=== PATIENT | female | born 1945 | race Caucasian/White ===

== ENCOUNTER 2024-06-18 19:19 | Emergency (ER) | payer MEDICARE, BC ==
[2024-06-18] MEDS ORDERED: Aspirin Chewable 81 MG TAB ONE (19:34)
[2024-06-18 19:37] LABS: #Basophils 0.1 thou/uL (0.0-0.2); #Eosinphils 0.2 thou/uL (0.0-0.7); #Lymphocytes 1.9 thou/uL (1.20-3.40); #Monocytes 0.6 thou/uL (0.11-0.59); #Neutrophils 2.8 thou/uL (1.40-6.50); %Basophils 1.3 % (0.0-1.0); %Eosinophils 4.4 % (0.0-10.0); %Lymphocytes 33.6 % (21.0-51.0); %Monocytes 10.7 % (0.0-10.0); Hematocrit 37.6 % (36.0-47.0); Hemoglobin 11.8 g/dL (12.0-16.0); Mean Corpuscular HGB CONC 31.4 g/dL (32.0-36.0); Mean Corpuscular Hemoglobin 29.2 pg (27.0-31.0); Mean Corpuscular Volume 92.8 fl (78.0-98.0); Mean Platelet Volume 6.5 fL (7.4-10.4); Platelet Count 212 10x3/uL (130-400); RBC Distribution Width 12.8 % (11.5-14.5); Red Blood Cell (RBC) Count 4.05 mill/uL (4.20-5.40); White Blood Cell (WBC) Count 5.5 10x3/uL (4.8-10.8)
[2024-06-18 19:58] LABS: ALT (SGPT) 15 U/L (8-55); AST (SGOT) 18 U/L (5-34); Alkaline Phosphatase 84 U/L (40-110); Anion Gap 15 mmol/L (10-20); BUN (Urea Nitrogen) 26 mg/dL (9.8-20.1); Bilirubin, Total 0.3 mg/dL (0.2-1.2); Calc. Creatinine Clearance 0 mL/min (70-130); Calcium 9.1 mg/dL (7.8-10.44); Carbon Dioxide 23 mmol/L (23-31); Chloride 106 mmol/L (98-107); Estimated GFR 54; Globulin 2.4 g/dL (2.4-3.5); Glucose 116 mg/dL (83-110); Potassium 4.1 mmol/L (3.5-5.1); Protein, Total 6.4 g/dL (5.8-8.1); Sodium 140 mmol/L (136-145); Troponin I Less than 0.010 ng/mL (< 0.028)
[2024-06-18] MEDS ORDERED: Azithromycin 250 MG TAB ONE (20:22)
[2024-06-18] MEDS ORDERED: Ipratropium/Albuterol 3 ML NEB ONE (20:22)
[2024-06-18] MEDS ORDERED: cefTRIAXone (ROCEPHIN) 1 GM VIAL ONE (20:23)
[2024-06-18 20:28] LABS: Bilirubin Negative (Negative); Blood, Urine Negative (Negative); Clarity Clear (Clear); Glucose, Urine (Dipstick) Negative (Negative); Ketone, Urine Negative (Negative); Leukocyte Trace (Negative); Nitrite Negative (Negative); Protein, Urine (Dipstick) Negative (Neg-Trace); Specific Gravity, Urine 1.015 (1.005-1.030); Urobilinogen 0.2 mg/dL (Less than 2); pH, Urine 5.5 (5.0-9.0)
[2024-06-18 20:32] LABS: CAUTI Indications for Culture Fever or rigors; RBC/HPF None Seen HPF (0-3); Squamous Epithelial 0-3 HPF (0-3); WBC/HPF 0-3 HPF (0-3)
[2024-06-18 20:33] LABS: Urine Culture Reflex No No
[2024-06-18 22:50] LABS: Troponin I Less than 0.010 ng/mL (< 0.028)
== END 2024-06-18 22:50 | disposition short-term general hospital (02) ==
LOC: MADERS 19:19
DX: J18.9 Pneumonia, unspecified organism (principal); R07.89 Other chest pain; I10 Essential (primary) hypertension
CPT/HCPCS: 71045; 80053; 81001; 83880; 84484 ×2; 85025; 85379; 93005; 96374; 99285; J0696; J7620